=== PATIENT | female | born 1980 | race Caucasian/White ===

== ENCOUNTER → 2020-05-13 | Outpatient (CLI) | payer OTHER ==
[~2020-05-13] MED LIST: ABILIFY 5 MG TAB5 M1 PO; ABILIFY10 MG PO; ADDERALL 30 MG30 MG PO; AMBIEN 10 MG TA10 MG PO; CHILDREN'S FEV120 MG RECTAL; HYDROCODON-ACE1 EACH PO; IBUPROFEN 200200 M1 PO; LEVAQUIN 500 M500 M6 PO; MAXALT MLT ODT 55 M1 PO; NAPROSYN500 MG PO; NORCO 5-325 TA1 EACH PO; OXYCODONE HCL 55 MG PO; PRILOSEC 20 MG20 MG PO; TRAZODONE 150150 M1 PO; Trazodone PO; VICODIN 5-5001 EACH PO; XANAX 0.5 MG0.5 M1 PO; XARELTO10 M1 PO
== END ==
LOC: RAD 08:59
PROVIDERS: ATTEND Nurse Practitioner
DX: M54.5 Low back pain (principal)